=== PATIENT | female | born 1965 | race Caucasian/White ===

== ENCOUNTER 2023-03-09 15:41 | Inpatient (IN) | payer MEDICARE, OTHER ==
[~2023-03-09] VITALS: Ht 154.9 cm; Wt 75.3 kg
[2023-03-09] MEDS ORDERED: LORAZEPAM 2 MG/1 ML VIAL IV ONE ×2 (16:30→18:30)
[2023-03-09] MEDS ORDERED: LORAZEPAM 2 MG/1 ML VIAL ONE ×2 (16:39→18:31)
[2023-03-09 16:49] LABS: HEMATOCRIT 36.8 % (31.2-41.9); MEAN CORPUSCULAR HEMOGLOBIN 31.3 uug (24.7-32.8); MEAN CORPUSCULAR VOLUME 94.1 fL (75.5-95.3); PLATELET COUNT (AUTO) 317 K/uL (179-408)
[2023-03-09] MEDS ORDERED: PANT40TA49 PO (16:49)
[2023-03-09] MEDS ORDERED: CYAN250010 PO (16:49)
[2023-03-09] MEDS ORDERED: MAG-55 PO (16:49)
[2023-03-09] MEDS ORDERED: IBUP-1953 PO (16:49)
[2023-03-09] MEDS ORDERED: TOLT4CAP PO (16:49)
[2023-03-09] MEDS ORDERED: LACT10SO58 PO (16:49)
[2023-03-09] MEDS ORDERED: QUET300T2 PO (16:49)
[2023-03-09] MEDS ORDERED: TEMA15CA5 PO (16:49)
[2023-03-09] MEDS ORDERED: DOCU-141 PO (16:49)
[2023-03-09] MEDS ORDERED: METO50TA16 PO (16:49)
[2023-03-09] MEDS ORDERED: HYDR-3972 PO (16:49)
[2023-03-09] MEDS ORDERED: CLON0.5T4 PO (16:49)
[2023-03-09] MEDS ORDERED: MAGN400O6 PO (16:49)
[2023-03-09] MEDS ORDERED: IBUP-1955 PO (16:49)
[2023-03-09] MEDS ORDERED: QUET25TA PO (16:49)
[2023-03-09] MEDS ORDERED: FLUV50TA10 PO (16:49)
[2023-03-09] MEDS ORDERED: ACET-2154 PO (16:49)
[2023-03-09 17:16] LABS: CARBON DIOXIDE 26 mmol/L (21-32); CHLORIDE 98 mmol/L (98-107); CREATININE 0.4 mg/dL (0.6-1.3); GLUCOSE 100 mg/dL (74-106); POTASSIUM 4.3 mmol/L (3.5-5.1); UREA NITROGEN, BLOOD 12 mg/dL (7-18)
[2023-03-09 17:21] LABS: ALANINE AMINOTRANSFERASE 41 U/L (14-59); ALKALINE PHOSPHATASE 94 U/L (50-136); ASPARTATE AMINOTRANSFERASE 29 U/L (15-37); BILIRUBIN,DIRECT 0.1 mg/dL (0.0-0.2); BILIRUBIN,TOTAL 0.6 mg/dL (0.2-1.0); TOTAL PROTEIN, SERUM 7.1 g/dL (6.4-8.2)
[2023-03-09 17:30] LABS: ETHANOL < 3 MG/DL (0-0)
[2023-03-09 17:31] LABS: THYROID STIMULATING HORMONE 8.647 mIU/mL (0.358-3.740)
--- NOTE | 2023-03-09 18:01 | NUR ---
Pt is in room #2a. Dr Wilson evaluated the pt.
--- NOTE | 2023-03-09 19:04 | NUR ---
REPORT WAS GIVEN TO FOOT SPECIALIST RUDY PARMAR.
--- NOTE | 2023-03-09 19:05 | NUR ---
REPORT RECEIVED FROM CLAUDETTE GRANT. PT ROB ,Nancy Cruz AND O X 3 WITH NO CP, NO SOB.
--- NOTE | 2023-03-09 19:10 | NUR ---
PT WAS UNABLE TO URINATE. PT STRAIGHT CATHED WITH 250 ML YELLOW/ CLOUDY URINE RESULTED. URINE OBTAINED AND SENT TO LAB.
[2023-03-09 19:30] LABS: *BILIRUBIN,URIN NEGATIVE (NEGATIVE); *BLOOD, URINE 2+ (NEGATIVE); *CLARITY,URINE CLEAR (CLEAR); *COLOR,URINE YELLOW (YELLOW); *KETONES,URINE NEGATIVE (NEGATIVE); *UROBILINOGEN,URINE 0.2 E.U./dl (NORMAL); LEUKOCYTE ESTERASE ,URINE 3+ (NEGATIVE); NITRITE, URINE POSITIVE (NEGATIVE); PH,URINE 7.5 (5.0-8.0); UGLUCOSE NEGATIVE (NEGATIVE)
[2023-03-09 19:32] LABS: BACTERIA,URINE FEW /HPF (NONE SEEN)
[2023-03-09 19:43] LABS: *AMPHETAMINE, URINE NEGATIVE (NEGATIVE); *CANNABINOID, URINE NEGATIVE (NEGATIVE); *COCCAINE, URINE NEGATIVE (NEGATIVE); *PHENCYCLIDINE SCREEN,URINE NEGATIVE (NEGATIVE)
--- NOTE | 2023-03-09 19:43 | NUR ---
PET TEAM ( SERGEY) AT BEDSIDE EVALUATING PT FOR ADMISSION. PT EATING A MEAL WITH NO N/V AND NO ABD PAIN.
--- NOTE | 2023-03-09 20:15 | NUR ---
REPORT CALLED TO LUCRETIA GRANT.
[2023-03-09] MEDS ORDERED: NITROFURANTOIN/NITROFURAN MAC 100 MG CAPSULE PO ONE (20:30)
[2023-03-09] MEDS ORDERED: MAGNESIUM HYDROXIDE 30 ML LIQUID UDC PO PRN (22:00)
[2023-03-09] MEDS ORDERED: ACETAMINOPHEN 325 MG TABLET PO PRN (22:00)
[2023-03-09] MEDS ORDERED: BLOOD SUGAR DIAGNOSTIC 1 EACH STRIP VI ONE (22:00)
[2023-03-09] MEDS ORDERED: MAG HYDROX/AL HYDROX/SIMETH 30 ML LIQUID UDC PO PRN (22:00)
--- NOTE | 2023-03-09 22:00 | NUR ---
Pt. admitted to [facility] , under care of Dr. Ricardo ROTHMAN. PT A,A AND O X 3, STABLE WITH NO C/O CP NO SOB. Belongs List completed.
[2023-03-09] MEDS: ZOLPIDEM 5 MG TABLET PO PRN (22:48)
[2023-03-09] MEDS: HYDROCODONE/APAP 10-325 MG TABLET PO PRN (22:49)
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
[2023-03-10] MEDS: LORAZEPAM 1 MG TABLET PO PRN ×2 (03:23→09:10)
--- NOTE | 2023-03-10 06:42 | NUR ---
GPS: Pt.now awake at this time. Incontinence care provided. Encouraged to allow staff to reposition her Q2 hrs.and prn. Pt.remains paranoid,suspicious. Re-directed prn. Fluids taken adequately. Needs attended.
[2023-03-10] MEDS: HYDROCODONE/APAP 10-325 MG TABLET PO PRN ×3 (07:38→21:08)
--- NOTE | 2023-03-10 07:40 | NUR ---
Patient is given [place] 10-325 mg at 07:38 for hip pain rated 9 on the scale of 1 to 10, will be monitored for effectiveness.
[2023-03-10 07:49] VITALS: BP 118/86
[2023-03-10] MEDS: CEphaleXIN 250 MG CAPSULE PO SCH ×3 (09:10→17:30)
--- NOTE | 2023-03-10 09:14 | NUR ---
Patient is given Ativan 1 mg at 09:10AM for anxiety, will be monitored for effectiveness.
[2023-03-10] MEDS: QUETIAPINE FUMARATE 25 MG TABLET PO SCH ×2 (10:40→17:30)
[2023-03-10] MEDS: CLONAZEPAM 0.5 MG TABLET PO SCH ×2 (10:47→17:30)
[2023-03-10] MEDS ORDERED: DULOXETINE 20 MG CAPSULE.DR PO SCH (13:00)
--- NOTE | 2023-03-10 14:00 | NUR ---
Patient is given [place] 10-325 mg at 13:58 for hip pain rated 9 on the scale of 1 to 10, will be monitored for effectiveness.
--- NOTE | 2023-03-10 14:27 | NUR ---
COLE LPS CONSERVATOR CONTACT: SW spoke with pt's LPS conservator, Rosaline ([phone]) who provided this SW with a minute order and additional paperwork for the pt. Rosaline stated pt previosuly resided at [facility] and prior to that [facility] for about 10 years. Rosaline stated she will provide further details tomorrow. SW will continue to stay in contact.
[2023-03-10] MEDS ORDERED: MAG HYDROX/AL HYDROX/SIMETH 30 ML LIQUID UDC PO PRN (14:45)
[2023-03-10] MEDS ORDERED: HYDROCODONE/APAP 5-325MG TABLET PO PRN (14:45)
[2023-03-10] MEDS ORDERED: MAGNESIUM HYDROXIDE 30 ML LIQUID UDC PO PRN (14:45)
[2023-03-10 15:26] VITALS: BP 140/67
--- NOTE | 2023-03-10 15:30 | NUR ---
Received patient awake in her room. Patient is A/O X 3 to person, place. Patient is demanding, needy, dramatic, forgetful, fixated on narcotics and takes them on the clock. Patient states "I want Klonopin and [place] right now!" Patient is accusatory. Patient states to someone over the phone "I'm in a lot of pain and they don't give me pain killers when I need it". Patient refuses to walk with Physical therapists. Patient states "I don't walk for 4 months. I'm not able to anymore". Patient is total care. Reality orientation provided. Fall and safety precautions implemented.
--- NOTE | 2023-03-10 15:56 | NUR ---
COLE Initial Discharge Note: Pt currently resides at [facility] [address] [place] [address] ([phone]). COLE spoke with pt's LPS CONSERVATOR, Lilian ([phone]) regarding pt's discharge plan. COLE will continue to speak to Lilian to discuss if pt will return to [facility] or a different facility. COLE will work with Lilian, alise and MD to ensure a safe and proper discharge plan.
--- NOTE | 2023-03-10 17:02 | NUR ---
Patient is uncooperative with nursing care, over dramatic about changing her diapers. Patient is soaking wet and refuses to be changed. Patient needs to be convinced to be changed. It's done with lots of prompts and complaints. Patient states "I need to be sedated to be changed. I need narcotics!" Patient yells and screams "Gentle, gentle, I don't want to be changed" Patient is accusatory towards staff. Patient states "You're hurting me, stop hurting me!"
[2023-03-10] MEDS: DOCUSATE SODIUM 100 MG CAPSULE PO SCH (17:30)
[2023-03-10] MEDS: METOPROLOL TARTRATE 50 MG TABLET PO SCH (17:31)
[2023-03-10 20:00] VITALS: BP 128/78
[2023-03-10] MEDS ORDERED: QUETIAPINE FUMARATE 200 MG TABLET PO SCH (21:00)
[2023-03-10] MEDS: TOLTERODINE LA 2 MG CAP.SR.24H PO SCH (21:01)
--- NOTE | 2023-03-10 21:15 | NUR ---
GPS: Pt.remains needy,frequently calls for the nurse for no specific reason. Uncooperative during incontinence care. Accuses staff of not being careful/gentle with her during repositioning/diaper change. Med.seeking and wants her pain med.even though it's not due yet. Re-directed and re-assured prn. Needs attended. Safety checks Q15 minutes continues to ensure pt's safety.
[2023-03-11] MEDS: LORAZEPAM 1 MG TABLET PO PRN (02:46)
[2023-03-11] MEDS: ACETAMINOPHEN 325 MG TABLET PO PRN (02:47)
[2023-03-11] MEDS: HYDROCODONE/APAP 10-325 MG TABLET PO PRN ×3 (06:15→22:13)
[2023-03-11] MEDS: PANTOPRAZOLE SODIUM 40 MG TABLET.DR PO SCH (06:15)
[2023-03-11 07:30] VITALS: BP 103/67
[2023-03-11] MEDS: DOCUSATE SODIUM 100 MG CAPSULE PO SCH ×2 (08:45→16:48)
[2023-03-11] MEDS: QUETIAPINE FUMARATE 25 MG TABLET PO SCH ×3 (08:45→16:48)
[2023-03-11] MEDS: CYANOCOBALAMIN 1,000 MCG TABLET PO SCH (08:45)
[2023-03-11] MEDS: CEphaleXIN 250 MG CAPSULE PO SCH ×3 (08:46→16:48)
[2023-03-11] MEDS: CLONAZEPAM 0.5 MG TABLET PO SCH (08:46)
[2023-03-11] MEDS: METOPROLOL TARTRATE 50 MG TABLET PO SCH ×2 (08:49→16:49)
--- NOTE | 2023-03-11 14:30 | NUR ---
[place] 10-325 mg is given at 14:27 rated 9 on the scale of 1 to 10, will be monitored for effectiveness.
[2023-03-11 15:30] VITALS: BP 124/76
--- NOTE | 2023-03-11 16:18 | NUR ---
Received patient awake in her room. Patient is demanding, needy, dramatic, argumentative, fixated on narcotics, accusatory. Patient states "I want to go back to [place]. You don't treat me right" "I need my pain medication. I have chronic pain, you gave me only 2 pills so far" "I'm going to call 911 to rescue me from this horrible place" "I'm gonna in this place, take me upstairs" Patient yells the word nurse the whole day every 5 minutes, cannot be redirected. Patient is always requesting for all medications she can possibly have in times that are not scheduled. Patient is A/O X 3 to person, place. Reality orientation provided. Fall and safety precautions implemented.
[2023-03-11 20:10] VITALS: BP 116/51
[2023-03-11] MEDS: FLUVOXAMINE MALEATE 50 MG TABLET PO SCH (20:53)
[2023-03-11] MEDS: TOLTERODINE LA 2 MG CAP.SR.24H PO SCH (20:53)
[2023-03-11] MEDS ORDERED: QUETIAPINE FUMARATE 100 MG TABLET PO SCH (21:00)
--- NOTE | 2023-03-11 22:17 | NUR ---
Patient requested to receive her [place] 10mg/325mg po prn q 6hrs for severe chronic pain in bilateral lower extremities. Safety measures in place. Will continue to monitor.
[2023-03-12] MEDS: LORAZEPAM 1 MG TABLET PO PRN ×2 (05:54→15:00)
--- NOTE | 2023-03-12 05:54 | NUR ---
Pt is rirmi-zhd-adyid asking for either pain meds, anxiety medication, or unnecessary needs. Pt is attention seeking and needy. Gave Ativan 1mg po prn for increased anxiety. Will continue to monitor.
[2023-03-12] MEDS: PANTOPRAZOLE SODIUM 40 MG TABLET.DR PO SCH (06:26)
[2023-03-12 08:15] VITALS: BP 107/54
[2023-03-12] MEDS: DOCUSATE SODIUM 100 MG CAPSULE PO SCH ×2 (09:00→16:42)
[2023-03-12] MEDS: CEphaleXIN 250 MG CAPSULE PO SCH ×3 (09:00→16:44)
[2023-03-12] MEDS: CYANOCOBALAMIN 1,000 MCG TABLET PO SCH (09:00)
[2023-03-12] MEDS: QUETIAPINE FUMARATE 25 MG TABLET PO SCH ×3 (09:02→16:43)
[2023-03-12] MEDS: METOPROLOL TARTRATE 50 MG TABLET PO SCH ×2 (09:02→16:43)
[2023-03-12] MEDS: HYDROCODONE/APAP 10-325 MG TABLET PO PRN ×3 (10:13→23:08)
--- NOTE | 2023-03-12 10:56 | NUR ---
Gps/Battery Recharger- Patient constantly yelling, calling out for her simple needs, setting limits reviewed with patient , instructed not to yell, reassured staff will be checking her. Medicated with [place] 10/325 mg 1 tab. verbalized adequate relief. Incontinent of large amount of urine , as well a loose stools, good ivy- care and skin care provided, bilateral heels floated ,Repositioned for comfort.
[2023-03-12 15:53] VITALS: BP 106/60
[2023-03-12 19:30] VITALS: BP 108/65
[2023-03-12] MEDS: QUETIAPINE FUMARATE 200 MG TABLET PO SCH (20:51)
[2023-03-12] MEDS: FLUVOXAMINE MALEATE 50 MG TABLET PO SCH (20:51)
[2023-03-12] MEDS: TOLTERODINE LA 2 MG CAP.SR.24H PO SCH (20:51)
[2023-03-12] MEDS: ZOLPIDEM 5 MG TABLET PO PRN (20:52)
[2023-03-13] MEDS: LORAZEPAM 1 MG TABLET PO PRN ×3 (01:16→18:26)
[2023-03-13] MEDS: PANTOPRAZOLE SODIUM 40 MG TABLET.DR PO SCH (06:14)
[2023-03-13] MEDS: HYDROCODONE/APAP 10-325 MG TABLET PO PRN ×3 (06:19→19:46)
[2023-03-13 07:57] VITALS: BP 96/54
[2023-03-13] MEDS: DOCUSATE SODIUM 100 MG CAPSULE PO SCH ×2 (09:16→16:27)
[2023-03-13] MEDS: QUETIAPINE FUMARATE 25 MG TABLET PO SCH ×3 (09:16→16:30)
[2023-03-13] MEDS: CYANOCOBALAMIN 1,000 MCG TABLET PO SCH (09:16)
[2023-03-13] MEDS: CEphaleXIN 250 MG CAPSULE PO SCH ×3 (09:18→16:28)
[2023-03-13] MEDS: METOPROLOL TARTRATE 50 MG TABLET PO SCH ×2 (09:18→16:29)
[2023-03-13] MEDS: LACTULOSE 20 G/30 ML LIQUID UDC PO PRN (13:49)
--- NOTE | 2023-03-13 15:01 | NUR ---
Gps/Cs Associate- Assisted in repositioning lower extremeity. [place] floated, prn [place] 1 tab was admnistered po , verbalized adequate relief . gets anxious, calls yells for her needs . Had been compliant with her routine mers.
[2023-03-13] MEDS: ACETAMINOPHEN 325 MG TABLET PO PRN (16:30)
[2023-03-13 16:33] VITALS: BP 122/78
--- NOTE | 2023-03-13 18:34 | NUR ---
Gps/Family Program Specialist - Results of urine culture sent to Frida Green NP
[2023-03-13] MEDS: QUETIAPINE FUMARATE 200 MG TABLET PO SCH (20:01)
[2023-03-13] MEDS: TOLTERODINE LA 2 MG CAP.SR.24H PO SCH (20:01)
[2023-03-13] MEDS: CIPROFLOXACIN HCL 250 MG TABLET PO SCH (20:01)
[2023-03-13] MEDS: FLUVOXAMINE MALEATE 50 MG TABLET PO SCH (20:01)
[2023-03-13 20:38] VITALS: BP 108/52
[2023-03-13] MEDS: ZOLPIDEM 5 MG TABLET PO PRN (21:54)
[2023-03-14] MEDS: HYDROCODONE/APAP 10-325 MG TABLET PO PRN ×4 (00:59→21:54)
[2023-03-14] MEDS: LORAZEPAM 1 MG TABLET PO PRN ×4 (02:07→19:12)
[2023-03-14] MEDS: REMEDY ESSENTIAL ZINC PASTE 113 GM TOP SCH ×3 (02:07→20:28)
[2023-03-14] MEDS: PANTOPRAZOLE SODIUM 40 MG TABLET.DR PO SCH (05:32)
[2023-03-14] MEDS: ACETAMINOPHEN 325 MG TABLET PO PRN ×3 (05:32→20:27)
--- NOTE | 2023-03-14 05:39 | NUR ---
Patient awake most of the night, requesting PRN medications, mostly for pain and anxiety ,around the clock. Despite encouragement, this patient refuses to spend any time on her sides . Often the patient calls out for the staff to move her legs , when this patient is able to do it on her own. When providing ivy care, the patient yells at the top of her lungs, even when pre -medicated. Attention seeking behavior, poor coping mechanisms and states " My legs will break if you try to stand me up or move them quickly. " Every attempt is made to prevent this patient from skin breakdown but the patient resists being moved and is not willing to do what needs to be done to help. Safety Stratiges are in place along with ongoing education and encouragement on the importance of moving. Monitoring pain level and compliance with treatment.
[2023-03-14 08:01] VITALS: BP 105/62
[2023-03-14] MEDS: CIPROFLOXACIN HCL 250 MG TABLET PO SCH ×2 (08:08→20:28)
[2023-03-14] MEDS: CYANOCOBALAMIN 1,000 MCG TABLET PO SCH (08:09)
[2023-03-14] MEDS: QUETIAPINE FUMARATE 25 MG TABLET PO SCH ×3 (08:09→16:29)
[2023-03-14] MEDS: DOCUSATE SODIUM 100 MG CAPSULE PO SCH ×2 (08:10→16:29)
[2023-03-14] MEDS: METOPROLOL TARTRATE 50 MG TABLET PO SCH ×2 (08:10→16:31)
[2023-03-14] MEDS: LACTULOSE 20 G/30 ML LIQUID UDC PO PRN (09:47)
[2023-03-14 16:18] VITALS: BP 122/69
[2023-03-14 20:03] VITALS: BP 100/50
[2023-03-14] MEDS: TOLTERODINE LA 2 MG CAP.SR.24H PO SCH (20:27)
[2023-03-14] MEDS: QUETIAPINE FUMARATE 100 MG TABLET PO SCH (20:28)
[2023-03-14] MEDS: FLUVOXAMINE MALEATE 50 MG TABLET PO SCH (20:28)
[2023-03-14] MEDS ORDERED: QUETIAPINE FUMARATE 200 MG TABLET PO SCH (21:00)
[2023-03-14] MEDS: ZOLPIDEM 5 MG TABLET PO PRN (23:15)
[2023-03-15] MEDS: LORAZEPAM 1 MG TABLET PO PRN ×4 (00:25→23:56)
[2023-03-15] MEDS: ACETAMINOPHEN 325 MG TABLET PO PRN ×2 (04:13→12:19)
[2023-03-15] MEDS: HYDROCODONE/APAP 10-325 MG TABLET PO PRN ×4 (05:20→22:24)
[2023-03-15] MEDS: PANTOPRAZOLE SODIUM 40 MG TABLET.DR PO SCH (05:21)
[2023-03-15] MEDS: REMEDY ESSENTIAL ZINC PASTE 113 GM TOP SCH (05:24)
[2023-03-15 08:01] VITALS: BP 112/55
[2023-03-15] MEDS: METOPROLOL TARTRATE 50 MG TABLET PO SCH ×2 (08:14→16:19)
[2023-03-15] MEDS: DOCUSATE SODIUM 100 MG CAPSULE PO SCH ×2 (08:14→16:19)
[2023-03-15] MEDS: QUETIAPINE FUMARATE 25 MG TABLET PO SCH ×3 (08:14→16:19)
[2023-03-15] MEDS: CYANOCOBALAMIN 1,000 MCG TABLET PO SCH (08:14)
[2023-03-15] MEDS: CIPROFLOXACIN HCL 250 MG TABLET PO SCH ×2 (08:15→20:19)
[2023-03-15] MEDS: LACTULOSE 20 G/30 ML LIQUID UDC PO PRN (10:40)
--- NOTE | 2023-03-15 12:14 | NUR ---
COLE LPS CONSERVATOR CONTACT: COLE contacted pt's LPS conservator, Rosaline ([phone]) and left a voicemail for a call back to discuss pt's discharge plan.
--- NOTE | 2023-03-15 13:30 | NUR ---
GPS: Nursing Notes: Destructive Behavior To Others: Patient is awake and responding to her name, gets easily anxious when redirected, forgetful at times, needy, but following staff directions, stated "I do not know what is going on, but I feel anxious and a little paranoid.. Can you check my blanket..", isolative and withdrawn in her room, no interactions with peers, refusing to participate in therapeutic groups, unable to formulate a viable plan for self care, overly demanding at times by shouting "Nurse...Nurse...", go aggressive behavior noted, continue to monitor for safety, continue with treatment plan.
[2023-03-15 15:37] VITALS: BP 131/62
[2023-03-15 20:00] VITALS: BP 93/48
[2023-03-15] MEDS: FLUVOXAMINE MALEATE 50 MG TABLET PO SCH (20:18)
[2023-03-15] MEDS: QUETIAPINE FUMARATE 100 MG TABLET PO SCH (20:18)
[2023-03-15] MEDS: TOLTERODINE LA 2 MG CAP.SR.24H PO SCH (20:19)
[2023-03-16] MEDS: HYDROCODONE/APAP 10-325 MG TABLET PO PRN ×4 (04:20→22:46)
[2023-03-16] MEDS: LORAZEPAM 1 MG TABLET PO PRN ×3 (06:01→20:45)
[2023-03-16] MEDS: PANTOPRAZOLE SODIUM 40 MG TABLET.DR PO SCH (06:01)
[2023-03-16 08:07] VITALS: BP 100/52
[2023-03-16] MEDS: QUETIAPINE FUMARATE 25 MG TABLET PO SCH ×3 (09:05→16:49)
[2023-03-16] MEDS: DOCUSATE SODIUM 100 MG CAPSULE PO SCH ×2 (09:05→16:48)
[2023-03-16] MEDS: ACETAMINOPHEN 325 MG TABLET PO PRN ×2 (09:05→14:31)
[2023-03-16] MEDS: CYANOCOBALAMIN 1,000 MCG TABLET PO SCH (09:06)
[2023-03-16] MEDS: METOPROLOL TARTRATE 50 MG TABLET PO SCH ×2 (09:06→16:48)
[2023-03-16] MEDS: CIPROFLOXACIN HCL 250 MG TABLET PO SCH (09:07)
[2023-03-16] MEDS: NITROFURANTOIN/NITROFURAN MAC 100 MG CAPSULE PO SCH ×2 (11:29→20:44)
[2023-03-16] MEDS: REMEDY ESSENTIAL ZINC PASTE 113 GM TOP SCH (13:35)
--- NOTE | 2023-03-16 13:54 | NUR ---
GPS: Nursing Notes: Destructive Behavior To Others: Patient is awake and responding to her name, isolative and withdrawn in her room, no interactions with peers, overly demanding, needy, constantly asking for medications around the clock, refusing physical therapy, disrupting the unit by shouting "Nurse..Nurse.." Unable to formulate a viable plan for self care, stated "I here for medication adjustment...", redirected and setting limits during shift, continue to monitor for safety, continue with treatment plan.
[2023-03-16 16:00] VITALS: BP 109/60
[2023-03-16 20:00] VITALS: BP 122/69
[2023-03-16] MEDS: TOLTERODINE LA 2 MG CAP.SR.24H PO SCH (20:43)
[2023-03-16] MEDS: FLUVOXAMINE MALEATE 50 MG TABLET PO SCH (20:44)
[2023-03-16] MEDS: QUETIAPINE FUMARATE 100 MG TABLET PO SCH (20:45)
[2023-03-16] MEDS: LACTULOSE 20 G/30 ML LIQUID UDC PO PRN (21:16)
[2023-03-17] MEDS: ZOLPIDEM 5 MG TABLET PO PRN ×2 (01:42→23:19)
--- NOTE | 2023-03-17 03:15 | NUR ---
Pt was stared on Bactrim DS for infection and ninety minutes after the pt presented with a rash and was itching all over her body. Custom Frame Assembler was informed and ordered Benadryl 25mg Po One time order and Pepcid 20mg Po one time order. Medication was administered. No acute distress noted and vital signs are normal. Safety measures put in place,Continue to monitor for safety.
[2023-03-17] MEDS: PANTOPRAZOLE SODIUM 40 MG TABLET.DR PO SCH (06:04)
[2023-03-17] MEDS: LEVOTHYROXINE SODIUM 50 MCG TABLET PO SCH (06:04)
[2023-03-17] MEDS: HYDROCODONE/APAP 10-325 MG TABLET PO PRN ×3 (06:06→21:05)
[2023-03-17 07:52] VITALS: BP 110/45
[2023-03-17] MEDS: QUETIAPINE FUMARATE 25 MG TABLET PO SCH ×3 (08:56→17:22)
[2023-03-17] MEDS: NITROFURANTOIN/NITROFURAN MAC 100 MG CAPSULE PO SCH (08:57)
[2023-03-17] MEDS: CYANOCOBALAMIN 1,000 MCG TABLET PO SCH (08:57)
[2023-03-17] MEDS: DOCUSATE SODIUM 100 MG CAPSULE PO SCH ×2 (08:57→17:21)
[2023-03-17] MEDS: METOPROLOL TARTRATE 50 MG TABLET PO SCH ×2 (08:58→17:22)
[2023-03-17] MEDS: ACETAMINOPHEN 325 MG TABLET PO PRN ×2 (09:05→17:21)
--- NOTE | 2023-03-17 10:04 | NUR ---
Firearms Report: Store Management Trainee completed and submitted a [employer] firearms report for 5150 grave disability certifications. A copy of report has been placed in patient chart.
[2023-03-17] MEDS ORDERED: SULFAMETH/TRIMETH 800/160 MG TABLET PO SCH (13:00)
[2023-03-17] MEDS ORDERED: FAMOTIDINE 20 MG TABLET PO ONE (15:00)
[2023-03-17] MEDS ORDERED: diphenhydrAMINE 25 MG CAP PO ONE (15:00)
--- NOTE | 2023-03-17 15:03 | NUR ---
COLE Discharge Update: COLE contacted pt's LPS CONSERVATORLilian ([phone]) and left a voicemail for a call back regarding pt's discharge plan.
[2023-03-17 15:22] VITALS: BP 115/52
--- NOTE | 2023-03-17 18:00 | NUR ---
Pt seems to be doing better, redness and itchiness has decreased, no SOB, no acute distress noted and pt is resting comfortably. Continue to monitor for safety.
--- NOTE | 2023-03-17 18:07 | NUR ---
Received patient awake in her room. Patient is demanding, needy, dramatic, argumentative, fixated on narcotics. Pt yells for her needs.Pt is ambulatory but refuses to get up from bed and walk with physical therapy. Pt refuses to help with her ADLs and wants everything done for her. Pt was agitated and demanded to be discharge to afferent hospital. Pt stated "I want to go to a different hospital where they can treat me better and not make me walk and give me pain medications when in ask. Pt was yelling and stated " roll me out in my bed and take me to the dinning room to watch TV". Reassurance provided. Safety measures put in place. Continue to monitor for safety continue with treatment plan.
[2023-03-17 19:53] VITALS: BP 120/55
[2023-03-17] MEDS: CEFTRIAXONE 1 G VIAL IM SCH (20:48)
[2023-03-17] MEDS: TOLTERODINE LA 2 MG CAP.SR.24H PO SCH (20:57)
[2023-03-17] MEDS: QUETIAPINE FUMARATE 200 MG TABLET PO SCH (20:57)
[2023-03-17] MEDS: FLUVOXAMINE MALEATE 50 MG TABLET PO SCH (20:57)
[2023-03-17] MEDS ORDERED: QUETIAPINE FUMARATE 100 MG TABLET PO SCH (21:00)
[2023-03-17] MEDS: REMEDY ESSENTIAL ZINC PASTE 113 GM TOP SCH (23:21)
[2023-03-18] MEDS: ACETAMINOPHEN 325 MG TABLET PO PRN ×2 (02:56→17:15)
[2023-03-18] MEDS: HYDROXYZINE PAMOATE 25 MG CAPSULE PO PRN (05:03)
--- NOTE | 2023-03-18 05:08 | NUR ---
GPS: Pt.now awake at this time. Anxious,demanding,argumentative and needy. Pt.likes staff to do everything for her even though she can do simple tasks for herself. Re-directed prn. Vistaril 25 mg given PO for anxiety. Repositioned prn. Incontinence care provided. No further c/o itching verbalized. Needs attended.
[2023-03-18] MEDS: LEVOTHYROXINE SODIUM 50 MCG TABLET PO SCH (06:04)
[2023-03-18] MEDS: LACTULOSE 20 G/30 ML LIQUID UDC PO PRN ×2 (06:04→13:34)
[2023-03-18] MEDS: PANTOPRAZOLE SODIUM 40 MG TABLET.DR PO SCH (06:04)
[2023-03-18] MEDS: HYDROCODONE/APAP 10-325 MG TABLET PO PRN ×2 (06:05→13:29)
[2023-03-18 08:17] VITALS: BP 121/69
[2023-03-18] MEDS: DOCUSATE SODIUM 100 MG CAPSULE PO SCH ×2 (08:49→16:58)
[2023-03-18] MEDS: QUETIAPINE FUMARATE 25 MG TABLET PO SCH ×3 (08:49→16:58)
[2023-03-18] MEDS: CYANOCOBALAMIN 1,000 MCG TABLET PO SCH (08:49)
[2023-03-18] MEDS: METOPROLOL TARTRATE 50 MG TABLET PO SCH ×2 (08:50→16:59)
[2023-03-18 15:54] VITALS: BP 117/64
--- NOTE | 2023-03-18 15:58 | NUR ---
Patient is demanding, needy, argumentative and fixated on narcotics. Pt is still refusing to get up from bed and walk with physical therapy. Pt refuses to help with her ADLs and wants everything done for her. Pt had less yelling outbursts during shift. Boundaries reinforced. Reassurance provided. Safety measures put in place. Continue to monitor for safety continue with treatment plan.
[2023-03-18 19:52] VITALS: BP 101/52
[2023-03-18] MEDS: QUETIAPINE FUMARATE 200 MG TABLET PO SCH (20:10)
[2023-03-18] MEDS: FLUVOXAMINE MALEATE 50 MG TABLET PO SCH (20:10)
[2023-03-18] MEDS: TOLTERODINE LA 2 MG CAP.SR.24H PO SCH (20:10)
[2023-03-18] MEDS: CEFTRIAXONE 1 G VIAL IM SCH (20:28)
[2023-03-18] MEDS: REMEDY ESSENTIAL ZINC PASTE 113 GM TOP SCH (20:39)
[2023-03-18] MEDS: ZOLPIDEM 5 MG TABLET PO PRN (23:11)
[2023-03-19] MEDS: ACETAMINOPHEN 325 MG TABLET PO PRN ×2 (00:43→17:24)
[2023-03-19] MEDS: HYDROXYZINE PAMOATE 25 MG CAPSULE PO PRN (00:43)
[2023-03-19] MEDS: HYDROCODONE/APAP 10-325 MG TABLET PO PRN ×3 (03:07→20:25)
[2023-03-19] MEDS: PANTOPRAZOLE SODIUM 40 MG TABLET.DR PO SCH (06:02)
[2023-03-19] MEDS: REMEDY ESSENTIAL ZINC PASTE 113 GM TOP SCH ×2 (06:02→20:24)
[2023-03-19] MEDS: LEVOTHYROXINE SODIUM 50 MCG TABLET PO SCH (06:02)
[2023-03-19 07:34] VITALS: BP 128/71
[2023-03-19] MEDS: DOCUSATE SODIUM 100 MG CAPSULE PO SCH ×2 (08:57→17:23)
[2023-03-19] MEDS: CYANOCOBALAMIN 1,000 MCG TABLET PO SCH (08:57)
[2023-03-19] MEDS: QUETIAPINE FUMARATE 25 MG TABLET PO SCH ×3 (08:57→17:24)
[2023-03-19] MEDS: METOPROLOL TARTRATE 50 MG TABLET PO SCH ×2 (08:58→17:23)
--- NOTE | 2023-03-19 11:55 | NUR ---
COLE CONSERVATOR CONTACT: COLE contacted pt's LPS CONSERVATOR, Lilian ([phone]) and left a voicemail for a call back. COLE informed Lilian that pt's only accepting facility at tis time is [facility] [address] [place] [address] . Per COLE's last conversation with Lilian, she is agreeable to [facility] is pt does not have other accepting facilities. COLE informed Lilian that discharge is scheduled for Wednesday03/22/23 at 11AM. COLE will contact Lilian again prior to discharge.
[2023-03-19 15:55] VITALS: BP 136/73
--- NOTE | 2023-03-19 15:58 | NUR ---
Patient is Anxious,demanding, needy, argumentative . Pt wants to eat laying flat in bed and when told is not safe to eat laying down pt started crying and refusing to eat her lunch.pt agree to elevate the head of the bed and only ate 25 % of her lunch. Pt Stated "Im in too much pain i can not sit up for too long. Pain medication was provided and was effective. Boundaries reinforced. Pt refuses to help with her ADLs and wants everything done for her. Reassurance and emotional support provided. Safety measures put in place. Continue to monitor for safety continue with treatment plan.
[2023-03-19 20:11] VITALS: BP 114/67
[2023-03-19] MEDS: QUETIAPINE FUMARATE 200 MG TABLET PO SCH (20:22)
[2023-03-19] MEDS: TOLTERODINE LA 2 MG CAP.SR.24H PO SCH (20:22)
[2023-03-19] MEDS: FLUVOXAMINE MALEATE 50 MG TABLET PO SCH (20:23)
[2023-03-19] MEDS: CEFTRIAXONE 1 G VIAL IM SCH (20:23)
[2023-03-20] MEDS: HYDROCODONE/APAP 10-325 MG TABLET PO PRN ×4 (02:07→20:17)
--- NOTE | 2023-03-20 02:33 | NUR ---
Patient has been consistent with medication requests. This science writer has encouraged the patient to turn and reposition , but the patient refuses. Multiple requests for small things , attention seeking behavior and loud calling out, is ongoing. Safety Stratiges are in place. Continuing to provide assistance with patients needs.
[2023-03-20] MEDS: ZOLPIDEM 5 MG TABLET PO PRN ×2 (03:18→22:40)
[2023-03-20] MEDS: REMEDY ESSENTIAL ZINC PASTE 113 GM TOP SCH ×2 (05:30→16:08)
[2023-03-20] MEDS: PANTOPRAZOLE SODIUM 40 MG TABLET.DR PO SCH (06:15)
[2023-03-20] MEDS: LEVOTHYROXINE SODIUM 50 MCG TABLET PO SCH (06:15)
[2023-03-20 08:09] VITALS: BP 126/63
[2023-03-20] MEDS: DOCUSATE SODIUM 100 MG CAPSULE PO SCH ×2 (08:09→16:06)
[2023-03-20] MEDS: CYANOCOBALAMIN 1,000 MCG TABLET PO SCH (08:09)
[2023-03-20] MEDS: QUETIAPINE FUMARATE 25 MG TABLET PO SCH ×3 (08:09→16:06)
[2023-03-20] MEDS: METOPROLOL TARTRATE 50 MG TABLET PO SCH ×2 (08:10→16:07)
[2023-03-20] MEDS: ACETAMINOPHEN 325 MG TABLET PO PRN ×2 (10:35→17:03)
--- NOTE | 2023-03-20 11:54 | NUR ---
GPS: Nursing Notes: Destructive Behavior To Others: Patient is awake and responding to her name, poor impulse control, disruptive by episodes of shouting, constantly asking for narcotics, redirected and setting limits, stated "I am here for mediation adjustment..", unable to formulate a viable plan for self care, refusing to participate in therapeutic groups, refusing to shower, continue to monitor for safety, no aggressive behavior noted, continue with treatment plan.
[2023-03-20 16:24] VITALS: BP 103/53
[2023-03-20 20:00] VITALS: BP 103/58
[2023-03-20] MEDS: TOLTERODINE LA 2 MG CAP.SR.24H PO SCH (20:16)
[2023-03-20] MEDS: FLUVOXAMINE MALEATE 50 MG TABLET PO SCH (20:16)
[2023-03-20] MEDS: QUETIAPINE FUMARATE 200 MG TABLET PO SCH (20:17)
[2023-03-20] MEDS: CEFTRIAXONE 1 G VIAL IM SCH (20:18)
[2023-03-21] MEDS: ACETAMINOPHEN 325 MG TABLET PO PRN ×3 (03:09→15:13)
[2023-03-21] MEDS: HYDROXYZINE PAMOATE 25 MG CAPSULE PO PRN ×2 (03:09→21:00)
[2023-03-21] MEDS: REMEDY ESSENTIAL ZINC PASTE 113 GM TOP SCH (05:39)
[2023-03-21] MEDS: HYDROCODONE/APAP 10-325 MG TABLET PO PRN ×3 (05:40→18:14)
[2023-03-21] MEDS: PANTOPRAZOLE SODIUM 40 MG TABLET.DR PO SCH (05:52)
[2023-03-21] MEDS: LEVOTHYROXINE SODIUM 50 MCG TABLET PO SCH (05:52)
[2023-03-21 07:44] VITALS: BP 110/52
[2023-03-21] MEDS: CYANOCOBALAMIN 1,000 MCG TABLET PO SCH (08:33)
[2023-03-21] MEDS: DOCUSATE SODIUM 100 MG CAPSULE PO SCH ×2 (08:33→16:43)
[2023-03-21] MEDS: METOPROLOL TARTRATE 50 MG TABLET PO SCH ×2 (08:33→16:44)
[2023-03-21] MEDS: QUETIAPINE FUMARATE 25 MG TABLET PO SCH ×3 (08:33→16:43)
--- NOTE | 2023-03-21 14:57 | NUR ---
GPS: Nursing Notes: Destructive Behavior To Others: Patient is awake and responding to her name, poor impulse control, episodes of disrupting the unit by shouting at times, redirected during shift, refusing to shower, refusing to get out of bed, resistant with nursing care by shouting "No..Let me alone.." when changing her wet diaper, refusing to be turn Q2HRS, impaired judgment, unable to formulate a viable plan for self care, continue to monitor for safety, no aggressive behavior noted, continue with treatment plan.
[2023-03-21 16:16] VITALS: BP 93/53
[2023-03-21 20:07] VITALS: BP 106/65
[2023-03-21] MEDS: FLUVOXAMINE MALEATE 50 MG TABLET PO SCH (21:00)
[2023-03-21] MEDS: TOLTERODINE LA 2 MG CAP.SR.24H PO SCH (21:00)
[2023-03-21] MEDS: QUETIAPINE FUMARATE 200 MG TABLET PO SCH (21:00)
[2023-03-21] MEDS: CEFTRIAXONE 1 G VIAL IM SCH (21:01)
[2023-03-21] MEDS: ZOLPIDEM 5 MG TABLET PO PRN (22:49)
--- NOTE | 2023-03-22 03:26 | NUR ---
No changes from previous two nights. Possible discharge later today. This typewriter operator automatic encouraged the patient to allow staff to turn and reposition her to prevent skin breakdown. Every time the topic came up, this patient would start getting agitated, yell and create a dramatic shonda, without even being touched. Alexandra care takes maximum assistance by 2 or more staff because the patient refuses to help. All during the shift, this patient yells out her needs with no regard for the other sleeping patients. The patient has been constantly requesting medications, around the clock ,since admission. Educating the patient has been very difficult due to the fact that the patient just is not open to receive or hear the message. Safety Stratiges remain in place.
[2023-03-22] MEDS: PANTOPRAZOLE SODIUM 40 MG TABLET.DR PO SCH (05:46)
[2023-03-22] MEDS: LEVOTHYROXINE SODIUM 50 MCG TABLET PO SCH (05:46)
[2023-03-22] MEDS: HYDROCODONE/APAP 10-325 MG TABLET PO PRN (05:46)
[2023-03-22] MEDS: REMEDY ESSENTIAL ZINC PASTE 113 GM TOP SCH (05:47)
[2023-03-22 07:39] VITALS: BP 108/61
[2023-03-22 08:37] VITALS: BP 108/61
[2023-03-22] MEDS: CYANOCOBALAMIN 1,000 MCG TABLET PO SCH (08:37)
[2023-03-22] MEDS: DOCUSATE SODIUM 100 MG CAPSULE PO SCH (08:37)
[2023-03-22] MEDS: METOPROLOL TARTRATE 50 MG TABLET PO SCH (08:37)
[2023-03-22] MEDS: QUETIAPINE FUMARATE 25 MG TABLET PO SCH (08:37)
[2023-03-22] MEDS: ACETAMINOPHEN 325 MG TABLET PO PRN (08:37)
--- NOTE | 2023-03-22 09:21 | NUR ---
COLE Discharge Note: Pt will be discharged to [facility] located at [address] [place] [address] via Ambulance transportation at 11AM. COLE spoke with Noe at the facility who states they are ready to accept the patient today in 22B. Pts LPS Conservator, Lilian Almonte ([phone]) is aware and agreeable with the discharge plan. Pt is alert and oriented x4, is unable to plan for self-care at this time. However, pt is willing to accept care at SNF. Pt denies any suicidal or homicidal ideation. Pt will follow-up at the facility with Psychiatrist, Dr. Gardiner and Briquette Maker, Dr. Christensen. Pt presents with calm mood and congruent affect. PHARMACY: [facility] in [place] [address] [place] [address]).
--- NOTE | 2023-03-22 11:32 | NUR ---
GPS: Nursing Notes: Discharge Notes: Patient is awake and responding to her name, compliant with her medications, refusing physical therapy, argumentative with nursing care, discharge to [facility] at [address] [place] [id number] . Report given to facility's admitting nurse - Robert - RN respiratory supervisor. Took all her belongings with her. LPS conservator - Lilian Almonte was notified of discharge by director social service. Patient will follow up with Dr. Gardiner (psychiatrist) and Dr. Christensen (fat purification worker) for aftercare at the facility.
== END 2023-03-22 11:30 | DRG 885 ==
LOC: ER 15:41 → GPS 21:39
PROVIDERS: ADMIT Psychiatry & Neurology Psychiatry; ATTEND Nurse Practitioner Acute Care
DX: F25.1 Schizoaffective disorder, depressive type (principal); N39.0 Urinary tract infection, site not specified; E44.1 Mild protein-calorie malnutrition; D68.59 Other primary thrombophilia; F42.9 Obsessive-compulsive disorder, unspecified; G89.4 Chronic pain syndrome; Z68.31 Body mass index [BMI] 31.0-31.9, adult; Z91.148 Patient's other noncompliance with medication regimen for other reason; K21.9 Gastro-esophageal reflux disease without esophagitis; E03.8 Other specified hypothyroidism; E66.01 Morbid (severe) obesity due to excess calories; I10 Essential (primary) hypertension; L27.0 Generalized skin eruption due to drugs and medicaments taken internally; T36.8X5A Adverse effect of other systemic antibiotics, initial encounter; Y92.230 Patient room in hospital as the place of occurrence of the external cause; Z53.29 Procedure and treatment not carried out because of patient's decision for other reasons; Z74.01 Bed confinement status; M79.605 Pain in left leg; M79.604 Pain in right leg; Z79.899 Other long term (current) drug therapy; Z20.822 Contact with and (suspected) exposure to COVID-19; F03.90 Unspecified dementia, unspecified severity, without behavioral disturbance, psychotic disturbance, mood disturbance, and anxiety
CPT/HCPCS: 36415; 71045; 84443; 85025; 93005; A4663; C1758; G0480; J0696; J2060; Q0163